=== PATIENT | male | born 2000 | race Caucasian/White ===

== ENCOUNTER 2024-11-13 01:39 | Emergency (ER) | payer OTHER ==
[~2024-11-13] VITALS: Ht 170.2 cm; Wt 64.0 kg
[2024-11-13 01:41] VITALS: O2SAT 100
[2024-11-13] MEDS ORDERED: LORAZEPAM 2MG/ML INJ IM ONE (02:15)
[2024-11-13] MEDS ORDERED: KETAMINE HCL 50 MG/ML 10ML IV ONE (02:30)
[2024-11-13] MEDS ORDERED: SODIUM CHLORIDE 0.9% 1,000 ML IV ONE (02:30)
[2024-11-13] MEDS ORDERED: DIPHENHYDRAMINE 50MG/ML VIAL IM NR (02:30)
[2024-11-13 03:03] VITALS: BP 148/89; PULSE 95; RESP 18; TEMP 36.6; O2SAT 98
[2024-11-13] MEDS: TETANUS, DIPHTHERIA, PERTUSSIS VAC/PF 0.5ML (>10YR OLD) IM ONE (03:05)
[2024-11-13] MEDS: SODIUM CHLORIDE 0.9% 1,000 ML IV ONE (03:05)
[2024-11-13] MEDS: DIPHENHYDRAMINE 50MG/ML VIAL IM ONE (03:05)
[2024-11-13] MEDS: HALOPERIDOL LACTATE 5MG/ML VIAL IM ONE (03:05)
[2024-11-13] MEDS: ONDANSETRON HCL 4MG/2ML INJ IV ONE (03:05)
[2024-11-13] MEDS: LORAZEPAM 2MG/ML UD SYRINGE IM NR (03:06)
[2024-11-13] MEDS: CEFAZOLIN 1000MG PREMIX 50 ML IV ONE (03:06)
[2024-11-13 03:09] LABS: BASOPHILS % 0.1 % (0.0-2.0); EOSINOPHILS % 0.1 % (0.0-5.0); HEMOGLOBIN. 14.7 g/dL (14.0-18.0); LYMPHOCYTES % 10.8 % (20.0-50.0); MEAN CORPUSCULAR HEMOGLOBIN 29.9 pg (28.0-32.0); MEAN CORPUSCULAR HGB CONC 34.2 g/dL (31.0-37.0); MEAN CORPUSCULAR VOLUME 87.7 fL (80.0-94.0); MEAN PLATELET VOLUME 8.7 fl (7.4-10.4); MONOCYTES % 9.5 % (2.0-8.0); NEUTROPHILS % 79.5 % (40.0-76.0); PLATELET 145 x1000/uL (130-400); RED BLOOD CELL COUNT 4.91 mill/uL (4.7-6.1); RED CELL DISTRIBUTION WIDTH 12.9 % (11.6-14.6); WHITE BLOOD COUNT 8.6 x1000/uL (4.5-11.0)
[2024-11-13 03:15] LABS: CHLORIDE 102 mEq/L (98-107); POTASSIUM 3.5 mEq/L (3.5-5.1); SODIUM 138 mEq/L (136-145)
[2024-11-13 03:16] LABS: CALCIUM 9.9 mg/dL (8.7-10.4); CARBON DIOXIDE 24 mEq/L (21-32)
[2024-11-13 03:21] LABS: CREATININE 1.1 mg/dL (0.6-1.3); GLUCOSE 142 mg/dL (70-105); UREA NITROGEN BLOOD 28 mg/dL (9-23)
[2024-11-13 03:22] LABS: ETHANOL BLOOD < 10 mg/dL (<10)
[2024-11-13 03:23] LABS: ACETAMINOPHEN < 2 ug/mL (10-30); CREATINE KINASE 460 IU/L (46-171)
[2024-11-13] MEDS ORDERED: IOHEXOL-300 100 ML BOTTLE ONE (04:32)
[2024-11-13] MEDS ORDERED: NEOMYCIN/BACITRACIN/POLYMYXIN OINT 14GM TOP ONE (05:00)
[2024-11-13 05:31] LABS: CLARITY URINE CLEAR (CLEAR); COLOR URINE YELLOW (YELLOW); GLUCOSE URINE NEGATIVE (NEGATIVE); KETONES URINE 1+ (NEGATIVE); LEUKOCYTE ESTERASE URINE NEGATIVE (NEGATIVE); NITRITE URINE NEGATIVE (NEGATIVE); OCCULT BLOOD URINE NEGATIVE (NEGATIVE); PROTEIN URINE NEGATIVE (NEGATIVE); SPECIFIC GRAVITY URINE 1.023 (1.005-1.030); UROBILINOGEN URINE 0.2 E.U./dL (0.2-1.0)
[2024-11-13 05:38] LABS: *AMPHETAMINES SCREEN URINE NEGATIVE (NEGATIVE); *BARBITURATES SCREEN URINE NEGATIVE (NEGATIVE); *BENZODIAZEPINES SCREEN URINE NEGATIVE (NEGATIVE); *COCAINE SCREEN URINE NEGATIVE (NEGATIVE); CANNABINOID URINE SCREEN NEGATIVE (NEGATIVE); ECSTASY MDMA SCREEN URINE NEGATIVE (NEGATIVE); METHADONE URINE SCREEN NEGATIVE (NEGATIVE); OPIATES URINE SCREEN NEGATIVE (NEGATIVE); PHENCYCLIDINE URINE SCREEN NEGATIVE (NEGATIVE)
== END 2024-11-13 05:29 ==
LOC: EDBD 01:39 → ER 01:58
DX: S00.03XA Contusion of scalp, initial encounter (principal); S40.012A Contusion of left shoulder, initial encounter; S80.02XA Contusion of left knee, initial encounter; S80.01XA Contusion of right knee, initial encounter; S29.9XXA Unspecified injury of thorax, initial encounter; R07.9 Chest pain, unspecified; Z79.899 Other long term (current) drug therapy; Z98.890 Other specified postprocedural states; V89.2XXA Person injured in unspecified motor-vehicle accident, traffic, initial encounter; Y93.02 Activity, running; Y92.89 Other specified places as the place of occurrence of the external cause; Y99.8 Other external cause status
CPT/HCPCS: 80305; 80048; 81003; 80307; 80329; 80320; 82550; 85025; 36415; 71045; 73030; 73560; 70450; 71260; 72125; 74177; 90715; 93005; 90471; 96365; 96372; 96375; 99285; Q9967; J0690; J1200; J1630; J2060; J2405; J7030; Z7610 ×4; A4606; G0480